=== PATIENT | female | born 1960 | race Hispanic/Latino ===

== ENCOUNTER 2021-04-12 17:09 | Emergency (ER) | payer OTHER ==
[~2021-04-12] VITALS: Ht 157.5 cm; Wt 65.8 kg
[2021-04-12 17:11] VITALS: BP 148/73
== END 2021-04-12 19:56 | disposition left against medical advice (07) ==
LOC: EDH 17:09
DX: Z53.21 Procedure and treatment not carried out due to patient leaving prior to being seen by health care provider (principal)

== ENCOUNTER 2021-06-27 14:44 | Emergency (ER) | payer SELFPAY ==
[~2021-06-27] VITALS: Ht 157.5 cm; Wt 63.5 kg
[2021-06-27 15:18] LABS: BASOPHILS % (AUTO) 0.4 % (0.0-5.0); EOSINOPHILS % (AUTO) 2.2 % (0.0-8.0); HEMATOCRIT 39.4 % (36-48); LYMPHOCYTES % (AUTO) 34.1 % (21.0-51.0); MEAN CORPUSCULAR HEMOGLOBIN 31.9 pg (27.0-33.0); MEAN CORPUSCULAR HGB CONC 33.8 g/dL (32.0-36.0); MEAN CORPUSCULAR VOLUME 94.5 fL (79-99); MONOCYTES % (AUTO) 8.8 % (3.0-13.0); NEUTROPHILS % (AUTO) 54.2 % (40.0-77.0); PLATELET COUNT (AUTO) 208 K/uL (130-400); RED BLOOD CELL COUNT(AUTO) 4.17 MIL/uL (4.00-5.50); RED CELL DISTRIBUTION WIDTH 11.9 % (11.0-15.5); WHITE BLOOD COUNT (AUTO) 7.6 K/uL (4.8-10.8)
[2021-06-27 15:31] LABS: POTASSIUM 3.4 mmol/L (3.5-5.1)
[2021-06-27 15:32] LABS: INR 0.97 (0.85-1.15); PROTHROMBIN TIME 10.6 SEC (9.6-11.6)
[2021-06-27 15:33] LABS: PARTIAL THROMBOPLASTIN TIME 23.2 SEC (26.3-35.5)
[2021-06-27 15:35] LABS: ALBUMIN 3.4 g/dL (3.5-5.0); BILIRUBIN,TOTAL 0.4 mg/dL (0.2-1.0); TOTAL PROTEIN, SERUM 8.6 g/dL (6.0-8.3)
[2021-06-27 15:46] VITALS: BP 133/83
[2021-06-27] MEDS ORDERED: ONDANSETRON 4MG INJ IVP ONE (16:00)
[2021-06-27 16:04] LABS: B-TYPE NATRIURETIC PEPTIDE 83 pg/mL (0-100)
[2021-06-27] MEDS ORDERED: MECLIZINE HCL 25 MG TABLET PO ONE (16:30)
[2021-06-27 17:17] VITALS: BP 135/72
[2021-06-27] MEDS ORDERED: IOHEXOL-350 75 ML VIAL IV ONE (17:51)
[2021-06-27 18:29] LABS: APPEARANCE,URINE Clear (CLEAR); BILIRUBIN,URINE Negative (NEGATIVE); COLOR,URINE Yellow (YELLOW); GLUCOSE, URINE (UA) 250 mg/dL (NEGATIVE); KETONES,URINE Negative (NEGATIVE); LEUKOCYTE ESTERASE ,URINE Small (NEGATIVE); NITRATE,URINE Negative (NEGATIVE); OCCULT BLOOD,URINE Negative (NEGATIVE); PH,URINE 5.5 (5.0-8.0); PROTEIN,URINE Negative (NEGATIVE)
[2021-06-27 19:10] LABS: BACTERIA,URINE Many /HPF (None Seen); RBC,URINE None Seen /HPF (0-1)
[2021-06-27 19:18] VITALS: BP 140/74
[2021-06-27] MEDS ORDERED: KCL 20 MEQ ERTAB PO ONE (19:30)
[2021-06-27] MEDS ORDERED: SOLU-MEDROL 125MG VIAL IVP ONE (19:30)
[2021-06-27] MEDS ORDERED: ONDA4TAB10 PO (19:56)
[2021-06-27] MEDS ORDERED: ASPI-1005 PO (19:56)
[2021-06-27] MEDS ORDERED: MECL-226 PO (19:56)
[2021-06-27] MEDS ORDERED: PRED20TA3 PO (19:56)
[2021-06-27] MEDS ORDERED: MOME17N NS (19:56)
== END 2021-06-27 20:20 | disposition home or self-care (01) ==
LOC: EDH 14:44
DX: H81.10 Benign paroxysmal vertigo, unspecified ear (principal); J32.0 Chronic maxillary sinusitis; E87.6 Hypokalemia; R82.71 Bacteriuria; F41.9 Anxiety disorder, unspecified; F32.9 Major depressive disorder, single episode, unspecified; E11.9 Type 2 diabetes mellitus without complications; E78.00 Pure hypercholesterolemia, unspecified
CPT/HCPCS: 36415; 70450; 70496; 70498; 71045; 80053; 81001; 82550; 83880; 84484; 85025; 85610; 85730; 87077; 87088; 87186; 93005; 96374; 96375; 99285; J2405; J2930; Q9967; 96365